=== PATIENT | male | born 1975 | race Caucasian/White ===

== ENCOUNTER 2020-06-22 17:33 | Emergency (ER) | payer BC ==
[~2020-06-22] VITALS: Ht 188 cm; Wt 199.6 kg
[~2020-06-22 17:33] MED LIST: AMLODIPINE BESY10 MG PO; CHLORTHALIDONE25 MG PO; LABETALOL HCL200 MG PO; LISINOPRIL20 MG PO; LOVASTATIN20 MG PO; PROCTOZONE-HC30 G1 PR; SPIRONOLACTONE25 MG PO; TRAMADOL HCL50 MG PO
[2020-06-22] MEDS ORDERED: OMEPRAZOLE20 MG PO (22:08)
== END 2020-06-22 22:22 | disposition home or self-care (01) ==
LOC: ED 17:33
DX: K80.20 Calculus of gallbladder without cholecystitis without obstruction (principal); I10 Essential (primary) hypertension; E78.00 Pure hypercholesterolemia, unspecified; Z88.1 Allergy status to other antibiotic agents; Z79.899 Other long term (current) drug therapy
CPT/HCPCS: 76705; 80053; 81001; 83690; 85025; 99284-25

== ENCOUNTER 2024-08-11 10:23 | Day surgery (SDC) | payer BC ==
[2024-08-04 16:28] VITALS: BP 147/80
[~2024-08-11] VITALS: Ht 188 cm; Wt 200.0 kg
[~2024-08-11 10:23] MED LIST changes: +CEFAZOLIN SODIUM 3 GM/30 ML SYR IV SCH; +FISH OIL 1,0001 EAC6 PO; +IBLOOD GLUCOSE TEST STRIP 1 EA TEST VI PRN; +LACTATED RINGER'S 1,000 ML IV SCH; +LIDOCAINE HCL 1% 5 ML SDV INJ ONE; +OMEPRAZOLE20 MG PO
[2024-08-11 10:39] VITALS: BP 150/78
[2024-08-11] MEDS ORDERED: FLUOXETINE HCL20 MG PO (10:55)
[2024-08-11] MEDS ORDERED: MULTI VITAMIN1 EACH PO (10:55)
[2024-08-11] MEDS ORDERED: propofoL 200 MG/20 ML VIAL ONE (13:07)
[2024-08-11] MEDS ORDERED: LACTATED RINGER'S 1,000 ML IV ONE (14:02)
--- NOTE | 2024-08-11 14:20 | NUR ---
08/11/24 1420 Shayla Jimenez 1411-PATIENT ARRIVED TO PACU ON 15L MASK NONAROUSABLE ORAL AND NASAL AIRWAY IN PLACE. PATIENT LAYING LEFT LATERAL. SR HR 80'S. 1413-PATIENT AROUSING REACHING FOR FACE ORAL AIRWAY REMOVED. PATIENTS MOUTH WIPES HAD SECRETIONS. 1415-NASAL AIRWAY REMOVED FROM LEFT NARE. PATIENT OPENING EYES ORIENTED TO PACU. IVF INFUSING. SR HR 80'S.
[2024-08-11 14:40] VITALS: BP 113/53
--- NOTE | 2024-08-11 15:33 | NUR ---
1440-PT BACK TO ROOM FORM PACU ON RA. RECEIVED REPORT FROM MARSHA ARRIOLA. PT IS AWAKE. RESP EVEN AND UNLABORED. PT DENIES PAIN AND NAUSEA. PT DRINKING WATER. NO OTHER NEEDS AT THIS TIME. CALL LIGHT WITHIN REACH.
[2024-08-11 15:37] VITALS: BP 121/47
--- NOTE | 2024-08-11 15:48 | NUR ---
1537-PT LAYING IN BED AWAKE. RESP EVEN AND UNLABORED. DENIES PAIN AND NAUSEA. PT READY TO GO HOME. PT WILL GET DRESSED. CALL LIGHT WITHIN REACH. 1545-WENT OVER DISCHARGE INSTRUCTIONS WITH PT. ALL QUESTIONS ANSWERED. PT AMBULATES TO WHEELCHAIR AND RIDE PROVIDED TO FRONT OF HOSPITAL WHERE FAMILY WAS WAITING WITH THE CAR.
--- NOTE | 2024-08-12 15:28 | PATH ---
[facility] [address] [place], [place] [address] Signed SPECIMEN(S): A RECTOSIGMOID POLYP SPECIMEN SOURCE: A. RECTOSIGMOID POLYP CLINICAL HISTORY: Screening, family history of colon cancer FINAL PATHOLOGIC DIAGNOSIS: Colon, rectosigmoid, polypectomy: - Hyperplastic polyp BRP MICROSCOPIC EXAMINATION: Histologic sections of all submitted blocks are examined by light microscopy. These findings, together with the gross examination, support the pathologic diagnosis. GROSS DESCRIPTION: The specimen, labeled and designated "Haid, rectosigmoid polyp," is received in formalin and consists of four aquino soft tissue fragments, ranging from 0.1-0.3 cm. Entirely submitted in (A1). VB (under the direct supervision of a pathologist) The Gross Description was prepared using a voice recognition system. The report was reviewed for accuracy; however, sound-alike word errors, addition and/or deletions may occur. If there is any question about this report, please contact Client Services. ADDITIONAL NOTES: Immunohistochemical and/or in situ hybridization studies if performed in this case included appropriate positive controls that reacted as expected. This test was developed and its performance characteristics determined by [facility]. It has not been cleared or approved by the U.S. Food and Drug Administration. The FDA has determined that such clearance or approval is not necessary. This test is used for clinical purposes. It should not be regarded as investigational or for research. [facility] is certified under the Clinical Laboratory Improvement Amendments of 1988 (CLIA) as qualified to perform high complexity clinical laboratory testing. PATIENT NAME: BABS LE PATHOLOGY DATE OF : 75 REPORT #: [id number] PHYSICIAN: JENNIFER VASQUEZ PCP: PETRONA MUÑOZ PA-C REPORT IS CONFIDENTIAL AND NOT TO BE RELEASED WITHOUT AUTHORIZATION [address], [place] [address] Signed PERFORMING LABORATORY: Technical component was performed by [facility], [address] [place] [address] (CLIA# [id number]). Professional interpretation was performed by [facility], [address] [place] [address] (CLIA#:[id number]). Diagnostician: Saul Castano MD Pathologist Electronically Signed 08/12/2024 Copies: ~ PATIENT NAME: BABS LE PATHOLOGY DATE OF : 75 REPORT #: [id number] PHYSICIAN: JENNIFER VASQUEZ PCP: PETRONA MUÑOZ PA-C REPORT IS CONFIDENTIAL AND NOT TO BE RELEASED WITHOUT AUTHORIZATION
--- NOTE | 2024-08-12 19:47 | OR ---
[facility] [address], [place] [address] Signed DATE OF OPERATION: 08/11/2024 SURGEON: Nanda Guillermo MD PREOPERATIVE DIAGNOSES: 1. Family history of stage IV colon cancer (mother). 2. Colon screening. 3. Morbid obesity with multiple comorbidities (sleep apnea). POSTOPERATIVE DIAGNOSIS: Small polyp of rectosigmoid. PROCEDURE: Total colonoscopy to cecum with cold morcellation polypectomy x1. ANESTHESIA: Intravenous sedation propofol infusion; Nanda Martines CRNA. INDICATION: This 49-year-old greater than 400 pounds white man is a patient of PRISCA Ellsworth. His mother has been diagnosed with stage IV colon cancer and he is referred for screening colonoscopy based on that and his age of 49 years. The patient has significant morbid obesity greater than 400 pounds with sleep apnea and other medical issues. On that basis, colonoscopy with propofol sedation is appropriate. The risk of bleeding, infection, and perforation related to colonoscopy were reviewed with him. He understands and wished to proceed. FINDINGS: The prep was actually quite good. Complete colonoscopy was undertaken of the cecum with full intubation of the cecum. Multiple advanced maneuvers were used to support the patient's airway, ultimately using an LMA device, but it was accomplished safely without complication. The prep was quite good. There was a small adenomatous polyp of the rectosigmoid, which was excised with cold morcellation technique. There were no other findings of note. DESCRIPTION OF PROCEDURE: The patient was brought to the endoscopy suite and placed in lateral decubitus position, given intravenous sedation with full cardiopulmonary monitoring. Airway support including nasal trumpet and other interventions was used. After satisfactory sedation, digital rectal examination was performed which was normal. An Olympus video colonoscope Electronically Signed By: NANDA GUILLERMO MD 08/12/24 194 PATIENT NAME: BABS LE OPERATIVE REPORT DATE OF : 75 REPORT #: [id number] PHYSICIAN: NANDA GUILLERMO MD PCP: PETRONA MUÑOZ PA-C REPORT IS CONFIDENTIAL AND NOT TO BE RELEASED WITHOUT AUTHORIZATION [facility] [address] [place], [place] [address] Signed was passed in the rectum and manipulated throughout the colon. The prep was good. Complete colonoscopy was undertaken of the cecum with full intubation of the cecum. Scope was withdrawn from the cecum and examination throughout was undertaken with all the care showing no sign of abnormality into the rectosigmoid where a small adenomatous appearing polyp was noted, this was excised with cold morcellation technique. Further withdrawal allowed for retroflexed view of the rectum, which was normal. Scope was removed. The patient was taken to the recovery room in good condition. CONCLUDING DIAGNOSIS: Small polyp x1 rectosigmoid. PLAN: Recommend repeat colonoscopy at five years based on family history and recent finding of polyp. He will return to the ongoing care of PRISCA Ellsworth. MD ERIC Love/[place] /[id number] cc: PRISCA Ellsworth Copies: ~ Electronically Signed By: NANDA GUILLERMO MD 08/12/24 1947 PATIENT NAME: BABS LE MORE OPERATIVE REPORT DATE OF : 75 REPORT #: [id number] PHYSICIAN: NANDA GUILLERMO MD PCP: PETRONA MUÑOZ PA-C REPORT IS CONFIDENTIAL AND NOT TO BE RELEASED WITHOUT AUTHORIZATION
== END 2024-08-11 15:45 | disposition home or self-care (01) ==
LOC: DS 10:23
PROVIDERS: ATTEND Surgery
PROC: 0DBN8ZZ Excision of Sigmoid Colon, Via Natural or Artificial Opening Endoscopic (ICD-10-PCS; principal; 2024-08-11 12:40)
DX: Z12.11 Encounter for screening for malignant neoplasm of colon (principal); K63.5 Polyp of colon; E66.01 Morbid (severe) obesity due to excess calories; K60.1 Chronic anal fissure; N63.10 Unspecified lump in the right breast, unspecified quadrant; I10 Essential (primary) hypertension; G47.33 Obstructive sleep apnea (adult) (pediatric); Z80.0 Family history of malignant neoplasm of digestive organs; Z68.43 Body mass index [BMI] 50.0-59.9, adult; Z90.49 Acquired absence of other specified parts of digestive tract; Z88.8 Allergy status to other drugs, medicaments and biological substances; Z79.899 Other long term (current) drug therapy
CPT/HCPCS: 00811; J0690; J2704; J7121

== ENCOUNTER 2025-03-11 06:58 | Day surgery (SDC) | payer BC ==
[~2025-03-11] VITALS: Ht 185.4 cm; Wt 200.0 kg
[~2025-03-11 06:58] MED LIST changes: -CEFAZOLIN SODIUM 3 GM/30 ML SYR IV SCH; +FLUOXETINE HCL20 MG PO; -IBLOOD GLUCOSE TEST STRIP 1 EA TEST VI PRN; -LIDOCAINE HCL 1% 5 ML SDV INJ ONE; +MULTI VITAMIN1 EACH PO
[2025-03-11] MEDS ORDERED: LIDOCAINE HCL 1% 5 ML SDV INJ ONE (07:00)
[2025-03-11] MEDS ORDERED: IBLOOD GLUCOSE TEST STRIP 1 EA TEST VI PRN ×2 (07:00→11:45)
[2025-03-11 07:36] VITALS: BP 114/47
[2025-03-11] MEDS ORDERED: CEFAZOLIN SODIUM 3 GM in SODIUM CHLORIDE 0.9% 100 ML IV SCH (08:30)
[2025-03-11] MEDS ORDERED: LIDOCAINE HCL 2% 5 ML SDV ONE (10:45)
--- NOTE | 2025-03-11 10:50 | NUR ---
1045- PT IN BED RESTING. PT VOICED NEED FOR RESTROOM. PREOP ANTIBIOTICS STARTED PER EMAR. PT ABLE TO SELF AMBULATE TO RESTROOM WITHOUT ISSUE. PT GOT BACK INTO BED SAFELY.
[2025-03-11] MEDS ORDERED: LIDOCAINE 1% W/ EPI 1:200,000 30 ML SDV ONE (10:58)
[2025-03-11] MEDS ORDERED: SUCCINYLCHOLINE IN 0.9% NACL 200 MG/10 ML SYRINGE ONE (11:04)
[2025-03-11] MEDS ORDERED: fentaNYL citrate 100 MCG/2 ML VIAL ONE (11:04)
[2025-03-11] MEDS ORDERED: DEXAMETHASONE SOD PHOS 4 MG/ML VIAL ONE (11:30)
[2025-03-11] MEDS ORDERED: HYDROmorphone HCL 1 MG/ML SYR IV PRN (11:45)
[2025-03-11] MEDS ORDERED: NALOXONE HCL 0.4 MG SYR IV PRN (11:45)
[2025-03-11] MEDS ORDERED: fentaNYL citrate 50 MCG/ML SDV IV PRN (11:45)
[2025-03-11] MEDS ORDERED: ACETAMINOPHEN 1,000 MG/100 ML VIAL ONE (11:57)
[2025-03-11] MEDS ORDERED: KETOROLAC TROMETHAMINE 30 MG/ML VIAL ONE (11:59)
[2025-03-11] MEDS ORDERED: SUGAMMADEX SODIUM 200 MG/2 ML ML ONE (11:59)
[2025-03-11] MEDS ORDERED: PHENYLEPHRINE HCL IN 0.9% NACL 1 MG/10 ML SYR ONE (12:10)
--- NOTE | 2025-03-11 12:33 | NUR ---
03/11/25 1233 Meghan Vernon 1221- PT PRESENTS TO PACU, SEMI PATTERSON POSITION, DROWSY BUT WAKES AND ANSWERS QUESTIONS. BREATHING EVEN AND NON LABORED, INTERMITTENT SNORING, O2 AT 6L PER MASK. LR INFUSING TO LFA IV. ABD SOFT, NON DISTENDED. DRESSING TO RIGHT BREAST, CDI. ALL MONITORS IN PLACE. CPAP AT BEDSIDE SET UP TO USE IF NEEDED. DENIES PAIN AND NAUSEA. 1230- PT WAKES EASILY TO VERBAL STIMULUS, HAS NO COMPLAINTS. RESTING INTERMITTENTLY.
[2025-03-11 12:55] VITALS: BP 158/70
--- NOTE | 2025-03-11 13:01 | NUR ---
1250- REPORT RECIEVED FROM DATABASE TESTER. PT SITTING UP IN BED, DENIES PAIN, N/V, AND DOES NOT STATE ANY NEEDS AT THIS TIME. PT DRANK A FULL CUP OF WATER WHILE IN PACU. CUP REFILLED AND SNACKS PRESENT AT BEDSIDE. RR EQUAL AND NON LABORED. PT EDUCATED ON DC REQUIREMENTS, PT VERBALIZED UNDERSTANDING. CALL LIGHT IN REACH.
[2025-03-11] MEDS ORDERED: SEVOFLURANE 250 ML BTL INH ONE (13:47)
[2025-03-11 14:12] VITALS: BP 144/73
--- NOTE | 2025-03-11 14:15 | NUR ---
1345- PT UP TO USE RESTROOM PER PT REQUEST. PT AMBULATED TO RESTROOM WELL WITHOUT DIFFICULTY OR NEED FOR ASSISTANCE. VOID AMOUNT AND VITALS NOTED. PT DENIES PAIN AND NAUSEA. PT HAS EATEN FOOD AND DRANK MULTIPLE CUPS OF WATER. PT DENIES NEEDS AT THIS TIME WITH ONLY A REQUEST FOR MORE WATER. REFILLED ICE WATER PROVIDED AND AT BEDSIDE. CALL LIGHT IN REACH.
--- NOTE | 2025-03-11 15:16 | NUR ---
1440- PT DC INSTRUCTIONS REVIEWED WITH PT AND FAMILY. BOTH VERBALIZED UNDERSTANDING AND ASKED QUESTIONS OPENLY AND REQUESTED A WORK NOTE. RN ANSWERED QUESTIONS FOR PT AND INFORMED MD THAT PT REQUESTED A WORK NOTE. PT WRITTEN SCRIPT FOR PAIN MEDS GIVEN TO PT AND FAMILY IN DC FOLDER WITH OTHER DC INFORMATION. PT IV REMOVED AND PT DRESSED SELF WITHOUT DIFFICULTY. 1450- MD AT BEDSIDE REVIEWING WORK NOTE WITH PT AND RESTRICTIONS FOR WORKPLACE. COPY OF WORK NOTE PLACED IN CHART AND ORIGINAL COPY SENT HOME WITH PT. 1510- PT LEFT DS WITH VIA WHEELCHAIR. PT TRANSFERED TO PRIVATE AUTO AT FRONT ENTERANCE WITHOUT ISSUE OR NEED FOR ASSISTANCE.
--- NOTE | 2025-03-15 10:28 | PATH ---
[facility] [address] [place], [place] [address] Signed SPECIMEN(S): A RIGHT BREAST RETROAREOLAR SPECIMEN(S): B RIGHT BREAST, DEEPER AREA DIALATED DUCT SPECIMEN SOURCE: A. RIGHT BREAST RETROAREOLAR B. RIGHT BREAST, DEEPER AREA DIALATED DUCT CLINICAL HISTORY: Hypertrophy of right breast with nipple and right breast. FINAL PATHOLOGIC DIAGNOSIS: A. Retroareolar breast tissue: - Benign dense fibrous breast stroma consistent with gynecomastia with focal benign intraductal papilloma and benign intraductal hyperplasia - Negative for atypia or malignant neoplasm B. Deep area of dilated duct: - Benign fibrous breast tissue consistent with gynecomastia with focal benign intraductal papilloma and mild benign intraductal hyperplasia - Negative for atypia or malignant neoplasm BB MICROSCOPIC EXAMINATION: Histologic sections of all submitted blocks are examined by light microscopy. These findings, together with the gross examination, support the pathologic diagnosis. GROSS DESCRIPTION: A. The specimen, labeled and designated "Elena Worley " and designated on the requisition "retroareolar breast tissue," is received in formalin and consists of 10 gram oriented portion of yellow-aquino fibroadipose tissue that is 3.8 x 2.7 x 2.3 cm. A black suture identifies the retroareolar tissue dilated. The white suture identifies site of duct. The sutures are opposite each other. The surface containing the black suture is inked yellow and the opposite surface with the white suture is inked black. The remaining surfaces are inked blue. The specimen is serially sectioned perpendicular to the long axis with the ends perpendicularly bisected. Approximately 90% of the specimen is a pink-white dense rubbery fibrous tissue and 10% is a yellow-aquino greasy adipose tissue. No discrete mass lesions are grossly identified The specimen is entirely submitted consecutively in cassettes A1-A10. PATIENT NAME: BABS WORLEY PATHOLOGY DATE OF : 75 REPORT #: [id number] PHYSICIAN: JENNIFER PATHOLOGY PCP: PETRONA MUÑOZ PA-C REPORT IS CONFIDENTIAL AND NOT TO BE RELEASED WITHOUT AUTHORIZATION [facility] [address], [place] [address] Signed Time of collection: 7:05 PM March 11, 2025. Time into formalin: 7:05 PM March 11, 2025. Processor load time: 9 AM March 12, 2025. Total fixation time in formalin: 13 hours 55 minutes The ASCO/CAP guidelines related to HER2 and hormone receptor testing in breast specimens have been met and the specimen has been placed in formalin within one hour and fixed in 10% neutral buffered formalin for 6 to 72 hours. B. The specimen, labeled and designated "Elena Worley, " and designated on the requisition "deep area dilated duct," is received in formalin and consists of 2 g unoriented portion of yellow-aquino fibroadipose tissue that is 1.9 x 1.6 x 1.2 cm. A white suture is present along one aspect the surface is inked yellow and the remainder of the specimen is inked black. The tissue is serially sectioned perpendicular to the long axis revealing approximately 80% of the specimen is yellow-aquino greasy adipose tissue and 20% a pink-white rubbery fibrous tissue. No discrete mass lesions are grossly identified. The specimen is entirely submitted consecutively in cassettes B1-B4. Time of collection: 7:05 PM March 11, 2025. Time into formalin: 7:05 PM March 11, 2025. Processor load time: 9 AM March 12, 2025. Total fixation time in formalin: 13 hours 55 minutes The ASCO/CAP guidelines related to HER2 and hormone receptor testing in breast specimens have been met and the specimen has been placed in formalin within one hour and fixed in 10% neutral buffered formalin for 6 to 72 hours. FB (under the direct supervision of a pathologist) The Gross Description was prepared using a voice recognition system. The report was reviewed for accuracy; however, sound-alike word errors, addition and/or deletions may occur. If there is any question about this report, please contact Client Services. ADDITIONAL NOTES: Immunohistochemical and/or in situ hybridization studies if performed in this case included appropriate positive controls that reacted as expected. This test was developed and its performance characteristics determined by [facility]. It has not been cleared or approved by the U.S. Food and Drug Administration. The FDA has determined that such clearance or approval is not PATIENT NAME: BABS WORLEY PATHOLOGY DATE OF : 75 REPORT #: [id number] PHYSICIAN: JENNIFER PATHOLOGY PCP: PETRONA MUÑOZ PA-C REPORT IS CONFIDENTIAL AND NOT TO BE RELEASED WITHOUT AUTHORIZATION [address] [address] Signed necessary. This test is used for clinical purposes. It should not be regarded as investigational or for research. [facility] is certified under the Clinical Laboratory Improvement Amendments of 1988 (CLIA) as qualified to perform high complexity clinical laboratory testing. PERFORMING LABORATORY: Technical component was performed by [facility], [address] [place] [id number] (CLIA# [id number]). Professional interpretation was performed by [facility] [address] [address] (CLIA#: [id number]). Diagnostician: Andrew Barton MD Pathologist Electronically Signed 03/15/2025 Copies: ~ PATIENT NAME: BABS WORLEY PATHOLOGY DATE OF : 75 REPORT #: [id number] PHYSICIAN: JENNIFER VASQUEZ PCP: PETRONA MUÑOZ PA-C REPORT IS CONFIDENTIAL AND NOT TO BE RELEASED WITHOUT AUTHORIZATION
== END 2025-03-11 15:10 | disposition home or self-care (01) ==
LOC: OPS 06:58 → DS 06:58 → OPS 08:30
PROVIDERS: ATTEND Surgery
PROC: 0HBW0ZZ Excision of Right Nipple, Open Approach (ICD-10-PCS; principal; 2025-03-11 09:00)
DX: D24.1 Benign neoplasm of right breast (principal); N64.52 Nipple discharge; N62 Hypertrophy of breast; I10 Essential (primary) hypertension; E78.00 Pure hypercholesterolemia, unspecified; K21.9 Gastro-esophageal reflux disease without esophagitis; Z88.1 Allergy status to other antibiotic agents; Z79.899 Other long term (current) drug therapy
CPT/HCPCS: 00400; J0131; J0165; J0330; J0688; J1100; J1171; J1885; J2003; J2704; J3010; J7121